=== PATIENT | male | born 2005 | race Caucasian/White ===

== ENCOUNTER 2024-10-14 19:56 | Emergency (ER) | payer SELFPAY ==
[2024-10-14 20:07] VITALS: BP 123/68; PULSE 70; RESP 16; TEMP 36.5; O2SAT 100
--- NOTE | 2024-10-14 20:29 | ED.GENADULT ---
HPI - General Adult General Chief complaint: Upper Respiratory Infection Stated complaint: Rib Pain/Chest Pain Time Seen by Provider: 10/14/24 20:08 Source: patient, family (Mother) and RN notes reviewed Mode of arrival: ambulatory Limitations: no limitations History of Present Illness HPI narrative: Mother presents patient today complaining of bilateral anterior rib/chest wall pain x3 months. At onset of symptoms patient was seen at an urgent care by his [facility] in [place] and was diagnosed with chest wall pain after an EKG and x-ray. He was placed on naproxen. He went back a 2nd time and was diagnosed again with same. He is now complaining of occasional twitching or spasms in the left upper chest area the last couple of days. Shortness of breath or fever. He is unable to get into his PCPs office while he is here on school break so he came in for re-evaluation. Related Data Allergies Allergy/AdvReac Type Severity Reaction Status Date / Time No Known Allergies Allergy Verified 10/14/24 20:08 Review of Systems Review of Systems: CONSTITUTIONAL: Denies body aches, fever, chills, or sweats. EYES: Denies visual changes, redness, or discharge. ENT: Denies rhinorrhea, congestion, sore throat, or otalgia. CARDIOVASCULAR: Denies chest pain, palpitations, or edema. RESPIRATORY: Denies cough or dyspnea.+ chest wall pain GASTROINTESTINAL: Denies abdominal pain, nausea, vomiting, or diarrhea. GENITOURINARY: Denies dysuria or hematuria. SKIN: Denies rash, itching, or wounds. MUSCULOSKELETAL: Denies back pain, joint pain, or myalgia. NEUROLOGIC: Denies headache, numbness, tingling, or weakness. PSYCH: Denies depression or anxiety. PMFSH Comments At time of signature, I have reviewed and agree with nursing past medical, surgical, social and family history unless otherwise noted. Please see nursing chart for further information. There is no relevant family history pertinent to the presenting complaint Exam Narrative: GENERAL: Well-appearing, well-nourished, and in no acute distress. HEAD: Normocephalic, atraumatic. EYES: EOMI. No redness or drainage. Conjunctivae normal. ENT: Mucous membranes pink and moist. NECK: Normal AROM. CHEST: No respiratory distress. Clear to auscultation. HEART: Regular rate and rhythm. No murmur appreciated. Normal peripheral pulses. Anterior chest wall is mildly tender to palpation bilaterally. No crepitus, edema noted. EXTREMITIES: Normal range of motion. No edema. SKIN: Warm, dry, no rash. Capillary refill normal. Normal skin turgor. NEURO: No focal deficits. Alert and oriented x3. Gait steady. PSYCH: Normal affect. No signs of depression or anxiety. Course Course Level of Care: Express Care Visit Vital Signs Vital signs: Vital Signs Temperature 97.7 F 10/14/24 20:07 Pulse Rate 70 10/14/24 20:07 Respiratory Rate 16 10/14/24 20:07 Blood Pressure 123/68 10/14/24 20:07 Pulse Oximetry 100 10/14/24 20:07 Temperature 97.7 F 10/14/24 20:07 Pulse Rate 70 10/14/24 20:07 Respiratory Rate 16 10/14/24 20:07 Blood Pressure 123/68 10/14/24 20:07 Pulse Oximetry 100 10/14/24 20:07 Reviewed Medical Decision Making MDM Narrative Medical decision making narrative: Patient and mother have been urged to make a follow-up visit with PCP, who can properly follow-up with patient regarding his ongoing symptoms. Prescription for short course of prednisone has been sent to pharmacy to see if this will help with patient's discomfort. Anticipatory guidance given. Differential Diagnosis Differential Diagnosis: Chest wall pain, costochondritis, palpitations Vital Signs Vital Signs: Vital Signs Temperature 97.7 F 10/14/24 20:07 Pulse Rate 70 10/14/24 20:07 Respiratory Rate 16 10/14/24 20:07 Blood Pressure 123/68 10/14/24 20:07 Pulse Oximetry 100 10/14/24 20:07 Temperature 97.7 F 10/14/24 20:07 Pulse Rate 70 10/14/24 20:07 Respiratory Rate 16 10/14/24 20:07 Blood Pressure 123/68 10/14/24 20:07 Pulse Oximetry 100 10/14/24 20:07 Critical Care Time Critical Care Time Critical Care Time: No Discharge Plan Discharge Clinical Impression: Chest wall pain Patient Disposition: Home, Self-Care Condition: Stable Additional Instructions: Please take the prednisone as directed. Follow-up with your PCP as soon as possible for further evaluation of your symptoms. If you develop any worsening symptoms such as shortness breath, palpitations etc., please go to the emergency room for further evaluation. Your blood pressure was elevated above 120/80 today at Urgent Care. This puts you above the threshold for follow up. Please schedule a followup visit with your personal physician as soon as possible, for further evaluation and treatment. Even blood pressure exceeding 120/80 may indicate pre-hypertension. Patient Language: Irish Prescriptions: New prednisone 20 mg tablet 40 mg PO DAILY 5 Days Qty: 10 0RF Follow-up/Referrals: PHYSICIAN,SUPPLY CHAIN DESIGN MANAGER [Primary Care Provider] - Time of Disposition: 20:29
== END 2024-10-14 20:30 | disposition home or self-care (01) ==
PROVIDERS: Emergency Provider Nurse Practitioner
DX: R07.89 Other chest pain (principal)
CPT/HCPCS: 99213; G0463